=== PATIENT | male | born 1935 | race Caucasian/White ===

== ENCOUNTER 2016-09-16 13:51 | Emergency (ER) | payer MEDICARE, BC ==
[~2016-09-16] VITALS: Wt 77.1 kg
[~2016-09-16 13:51] MED LIST: ADVAIR 250/501 EA INH; ASPIRIN81 M1 PO; ASTELIN NASAL S30 ML INH; FISH OIL 10001000 MG PO; FLONASE 0.05% 121 EA; HYTRIN10 MG PO; K-PHOS500 MG PO; LIPITOR40 MG PO; LISINOPRIL5 MG PO; MUCINEX600 MG PO; MULTIPLE VITAMI1 TAB PO; PHAZYME ULTRA180 MG PO; TERAZOSIN HYDRO10 MG PO; VIAGRA50 MG PO; VITAMIN D2000 IU PO; WELLBUTRIN SR150 MG PO; WELLBUTRIN XL300 MG PO; [UNRECOGNIZED DRUG - OTHER]
[2016-09-16 15:37] LABS: BILIRUBIN NEGATIVE (NEGATIVE); BLOOD 3+ (NEGATIVE); CLARITY SL CLOUDY (CLEAR); COLOR YELLOW (YELLOW); GLUCOSE NEGATIVE (NEGATIVE); KETONE NEGATIVE (NEGATIVE); LEUKO ESTERASE 1+ (NEGATIVE); NITRITE NEGATIVE (NEGATIVE); PROTEIN 1+ (NEGATIVE); UROBILINOGEN 0.2 E.U./dl (0.2-1.0)
[2016-09-16 15:51] LABS: BACTERIA 1+; EPITHELIAL CELLS 0-2; RBC TNTC rbc/hpf (0-2); URINE REFLEX COMMENT YES (NO)
[2016-09-16] MEDS ORDERED: CIPRO500 MG PO (16:02)
== END 2016-09-16 16:20 | disposition home or self-care (01) ==
LOC: ED 13:51
PROVIDERS: Physician Assistant
DX: R33.8 Other retention of urine (principal); Z79.82 Long term (current) use of aspirin; Z79.899 Other long term (current) drug therapy

== ENCOUNTER → 2016-09-21 | Day surgery (SDC) | payer MEDICARE, BC ==
[~2016-09-21] MED LIST changes: +CIPRO500 MG PO
== END | disposition home or self-care (01) ==
LOC: SDC 09-20 13:15
DX: R33.8 Other retention of urine (principal)

== ENCOUNTER → 2016-11-09 | Outpatient (CLI) | payer MEDICARE, BC | END | disposition home or self-care (01) | LOC: NM 02:49 | DX: K82.9 Disease of gallbladder, unspecified (principal) ==

== ENCOUNTER → 2017-01-10 | Outpatient (CLI) | payer MEDICARE, BC | END | disposition home or self-care (01) | LOC: CARD 12:57 | DX: R53.83 Other fatigue (principal); R06.00 Dyspnea, unspecified ==

== ENCOUNTER → 2017-03-15 | Outpatient (CLI) | payer MEDICARE, BC ==
[2017-03-15 12:33] LABS: BASO # 0.1 10*3/uL (0.0-0.1); BASO % 0.3 % (0.0-1.0); EOS # 0.6 10*3/uL (0.0-0.4); EOS % 3.1 % (1.0-4.0); HEMATOCRIT 43.1 % (42.0-52.0); HEMOGLOBIN 14.2 g/dl (14.0-18.0); LYMPH # 2.5 10*3/uL (1.3-4.4); LYMPH % 13.7 % (27.0-41.0); MEAN CELL VOLUME 94.7 fl (80.0-94.0); MEAN CORPUSCULAR HGB 31.2 pg (27.0-31.0); MEAN CORPUSCULAR HGB CONC 32.9 g/dl (33.0-37.0); MEAN PLATELET VOLUME 10.6 fl (9.6-12.3); MONO # 0.9 10*3/uL (0.1-1.0); NEUT # 14.3 10*3/uL (2.3-7.9); NEUT % 77.2 % (47.0-73.0); PLATELET COUNT AUTOMATED 373 10*3/uL (130-400); RED BLOOD COUNT 4.55 10*6/uL (4.50-5.90); RED CELL DISTRI WIDTH 13.2 % (0-14.5); WHITE BLOOD COUNT 18.4 10*3/uL (4.8-10.8)
[2017-03-15 12:57] LABS: ALBUMIN 3.3 gm/dl (3.1-4.5); ALKALINE PHOSPHATASE 76 U/L (45-117); BUN 19 mg/dl (7-24); CHLORIDE 107 mmol/L (98-107); CHOLESTEROL 117 mg/dL (<200); CREATININE 1.01 mg/dL (0.70-1.30); HDL CHOLESTEROL 43 mg/dl (40-60); LDL CHOLESTEROL 49 mg/dL (9-159); POTASSIUM 4.4 mmol/L (3.5-5.1); SGOT/AST 12 IU/L (3-35); SGPT/ALT 21 U/L (12-78); SODIUM 139 mmol/L (136-145); TOTAL PROTEIN 7.1 gm/dL (6.4-8.2); TRIGLYCERIDES 127 mg/dl (<150); VLDL CHOLESTEROL 25 mg/dL (6-40)
[2017-03-15 13:04] LABS: THYROID STIM HORMONE (HS) 0.755 uIU/ml (0.358-4.75)
== END | disposition home or self-care (01) ==
LOC: LAB 02:02
PROVIDERS: Internal Medicine
DX: Z12.5 Encounter for screening for malignant neoplasm of prostate (principal); I10 Essential (primary) hypertension; E78.2 Mixed hyperlipidemia; N40.0 Benign prostatic hyperplasia without lower urinary tract symptoms

== ENCOUNTER → 2017-03-20 | Outpatient (CLI) | payer MEDICARE, BC ==
[2017-03-20 14:19] LABS: BASO # 0.1 10*3/uL (0.0-0.1); BASO % 0.3 % (0.0-1.0); EOS # 0.4 10*3/uL (0.0-0.4); EOS % 2.6 % (1.0-4.0); HEMATOCRIT 42.1 % (42.0-52.0); HEMOGLOBIN 13.9 g/dl (14.0-18.0); LYMPH # 2.3 10*3/uL (1.3-4.4); LYMPH % 15.6 % (27.0-41.0); MEAN PLATELET VOLUME 10.1 fl (9.6-12.3); MONO # 0.9 10*3/uL (0.1-1.0); NEUT # 11.1 10*3/uL (2.3-7.9); PLATELET COUNT AUTOMATED 388 10*3/uL (130-400); RED BLOOD COUNT 4.48 10*6/uL (4.50-5.90); RED CELL DISTRI WIDTH 13.2 % (0-14.5); WHITE BLOOD COUNT 14.8 10*3/uL (4.8-10.8)
== END | disposition home or self-care (01) ==
LOC: LAB 14:03
PROVIDERS: Internal Medicine
DX: I10 Essential (primary) hypertension (principal)

== ENCOUNTER 2017-08-19 19:55 | Inpatient (IN) | payer MEDICARE, BC ==
[~2017-08-19] VITALS: Ht 177.8 cm; Wt 76.8 kg
--- NOTE | ~2017-08-19 | PR ---
[place], [place] PROGRESS NOTE [id number] UNIT #: [id number] ROOM: [place] [address] DOCTOR: TYRONE ERAZO MD BIRTHDATE: [birth year] DOS: 08/21/2017 CARDIOLOGY PROGRESS NOTE SUBJECTIVE: The patient was seen at his bedside in the intensive care unit today, 08/21/2017. No family is in attendance. He is a 81-year-old man with risk factors for coronary disease including hypertension, hyperlipidemia and peripheral arterial disease, who also has a remote history of colon resection for "suspicious polyps." He comes into the Emergency Room now with generalized weakness and fatigue. Blood cultures are positive for gram-negative bacilli. The patient is noted to have a large gallbladder stone. He did have CT scanning of his head, chest and abdomen. The CT scan of the chest does show a spiculated upper lobe lesion, suggestive of metastatic disease. There are suspicious lesions in his liver and adrenal gland as well. In addition, he does have a high fever, which was recorded as high as 106.3 and he does have an elevated white cell count, which was recorded as high as 46,600. From a cardiac perspective, he denies chest pain. His electrocardiogram shows nonspecific changes; however, troponin levels have been elevated. On admission, his troponin was 7.26. The subsequent troponin level was 17.3, followed by 13.9 and then 8.91. Currently, the patient states he just feels tired and sore all over. He denies any specific chest pain or palpitations and denies any trouble breathing. PHYSICAL EXAMINATION: VITAL SIGNS: Today his pulse is 83 and regular, blood pressure is 111/36. He is on Levophed. His current temperature is 100.1. He weighs 76.8 kg and has a body mass index 24.3. HEENT: Normocephalic and atraumatic. Extraocular muscles are intact. Sclerae are muddy, but I do not see any scleral hemorrhages. Oral mucosa is moist. Tongue is midline. NECK: Supple. He has no jugular distention. Carotids are full. LUNGS: Respirations are unlabored. He has decreased breath sounds at the bases, but no wheezes or rales. HEART: Has a regular rhythm. He has an S4 gallop. I did not hear an S3. He has grade 1/6 systolic ejection murmur along the left sternal border. There is no diastolic murmur. ABDOMEN: Soft and normally active. EXTREMITIES: Showed no edema. IMPRESSION: 1. Admission with malaise. The patient found to have high fever, high white count and blood cultures positive for gram-negative rods. He does have a large stone in his gallbladder, which may be the source. 2. History of colon resection for "suspicious polyps" in the distant past. 3. CT scan suspicious for pulmonary, liver and adrenal metastases. 4. Gram-negative sepsis. 5. Elevation in troponin, consistent with acute myocardial injury. Significance of this finding is not yet apparent. The elevation is more than [place], [place] PROGRESS NOTE NAME: FRANCA TAVERA UNIT #: [id number] ROOM: [place] [address] DOCTOR: TYRONE ERAZO MD BIRTHDATE: [birth year] one would expect for stress myocardial ischemia or demand ischemia. PLAN: For now, we are treating him empirically. We will obtain an echocardiogram to evaluate regional and global left ventricular function. Further recommendations will depend upon the results of his echo as well as his general medical evaluation. Whether or not we proceed with advanced cardiac diagnostic studies will depend upon his general prognosis. I thank the hospitalist physicians for asking our advice regarding his care. TYRONE ERAZO MD CM:PNTRANS [id number] TYRONE ERAZO MD 08/21/17 1015 interface
--- NOTE | ~2017-08-19 | CON ---
[place], [place] REPORT OF CONSULTATION NAME: FRANCA TAVERA UNIT #: [id number] ROOM: [place] [address] DOCTOR: LULA MCQUEEN,SEPTEMBER BIRTHDATE: [birth year] DOS: 08/20/2017 HISTORY OF PRESENT ILLNESS: The patient is a 81-year-old male who was admitted with fever last night, sepsis. He spiked a temperature this morning of 106.3, was transferred to ICU. He was ordered Merrem at 10:00 a.m. today. He last night received Rocephin and Zithromax on admission. His white count was 25,000 last night, this morning was up to 43,000, this afternoon to 46,000. He had a CT of the abdomen, chest and pelvis that demonstrated no acute infiltrates; however, he has a couple of liver lesions concerning for metastatic disease as well as a left adrenal mass concerning for malignancy. No abscesses. His admitting blood cultures now have gram-negative rods. He had elevated troponin. He remains on Levophed. The patient is alert. He states he has been sick since yesterday morning. He has had no nausea or vomiting. He has had fevers, chills. He has chronic neck pain. Denies abdominal pain until he states just started now. He also had weakness, diaphoresis, achiness at the time of admission. His CT also noted a 2 cm stone. He states he has had a 2 cm gallstone. He states he has had for a long time. Lactic acid was 4 last night, it is 2.9, right now. Denies any other symptoms. He has Mina catheter in currently. PAST MEDICAL HISTORY: As above. He has been taking Tylenol reportedly 1000 mg 3 times a day for arthritic pain. 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 He states they did not find cancer at that point in time, it was approximately 15 years ago. He is status post TURP. SOCIAL HISTORY: Reformed smoker, quit in 2013, 1 pack of cigarettes per day for many years. Occasional alcohol use. No illicit drug use. FAMILY MEDICAL HISTORY: Mother from CVA at the age of 59. Father from an MVA. ALLERGIES: No known drug allergies. LABORATORY DATA: WBC is 46.6, platelets 270. Most recent BMP is pending. Lactic acid 2.9, which had actually gone up from earlier when it was 2.5. UA negative for pyuria. CK 49.51, CK-MB 6.1, myoglobin 3452. Lactic acid peaked at 5.5 at 9:30 this morning. Troponin elevated as well. BUN 17, creatinine 1.27. CURRENT MEDICATIONS: Lovenox, norepinephrine, Lopressor, Merrem, vancomycin, Tamiflu, Restoril, [place]. REVIEW OF SYSTEMS: As above in history of present illness. No cough or shortness of breath. No rash or itch. Again, he has been having fevers, sweats, chills. Denies abdominal pain Previously, until just now. No peripheral edema. No rashes. No recent change in vision, hearing, weight. He has not eaten in over 24 hours. Further review of systems is unremarkable. PHYSICAL EXAMINATION: [place], [place] REPORT OF CONSULTATION NAME: FRANCA TAVERA UNIT #: [id number] ROOM: [place] [address] DOCTOR: LULA MCQUEEN,SEPTEMBER BIRTHDATE: [birth year] VITAL SIGNS: Temperature 99.2 rectal, pulse 88, respirations 28, BP 95/57: GENERAL: A 81-year-old male, somewhat toxic in appearance. HEAD, EYES, EARS, NOSE AND THROAT: Normocephalic. No thrush. One very small black spot noted on distal tongue, otherwise oropharynx is unremarkable. NECK: Supple. LUNGS: Clear to auscultation bilaterally. Respirations even and unlabored. HEART: Regular rhythm. No murmur appreciated. Tachy. ABDOMEN: Soft. Liver enlarged, tender, palpable. Hypoactive bowel sounds. EXTREMITIES: No edema, deformity or mottling of the feet. Mina catheter draining clear yellow urine, small amount, just recently emptied. SKIN: Warm, diaphoretic, pale. ASSESSMENT AND PLAN: Gram-negative rhonda septicemia, multiple liver lesions concerning for malignancy, large gallstone which the patient states he has had for some time. He does not have signs of obstruction, but that is certainly possible. We have no surgical support here at [facility] right now. I did discuss the case with Dr. Morris. Consideration may need to be moving him to a tertiary care center, especially given his now worsening again lactic acid and as well as worsening of his BP. We will dose gentamicin 5 mg/kg IV x 1, continue the Merrem. He is going to need further workup for the liver lesions. This may be the source of his septicemia or possibly issues with the gallstone. LA COTTON CNP NILES SANCHEZ MD CM:CONSTR:REPORT OF CONSULTATION 1548 08/20/17 1757 interface
--- NOTE | ~2017-08-19 | CON ---
[place], [place] REPORT OF CONSULTATION NAME: FRANCA TAVERA UNIT #: [id number] ROOM: [place] [address] DOCTOR: LAURA QUINTERO,NILES Clark BIRTHDATE: [birth year] DOS: 08/20/2017 ADDENDUM After reviewing the chart and labs, I agree with the above plans as described. We will follow the patient up clinically, adjust accordingly. Thank you for allowing me to see the patient and participate in his care. NILES SANCHEZ MD CM:CONSTR:REPORT OF CONSULTATION 2106 08/21/17 0744 interface
--- NOTE | ~2017-08-19 | CON ---
[place], [place] REPORT OF CONSULTATION NAME: FRANCA TAVERA UNIT #: [id number] ROOM: [place] [address] DOCTOR: WOLF QUINTERO,AYUSH BIRTHDATE: [birth year] DOS: 08/20/2017 REASON FOR CONSULTATION: Elevated troponin. HISTORY OF PRESENT ILLNESS: This is a 81-year-old patient with history of hypertension, dyslipidemia, peripheral vascular disease, who presents to the Emergency Room for fever. For the past couple of days, he is running fever with chills, generalized weakness and some diaphoresis and body aches. He denies any nausea, vomiting, chest pains. His laboratory testing showed elevated cardiac troponin, hence Cardiology was consulted. Most of the history was obtained from the chart since the patient was somewhat lethargic from a high fever and there is no family at bedside. He denies any chest pain or shortness of breath. No palpitations or syncope. REVIEW OF SYSTEMS: Review of the 10 systems negative except as mentioned above. PAST MEDICAL HISTORY: 1. Hypertension. 2. Peripheral vascular disease. 3. Dyslipidemia. 4. History of colon cancer. PAST SURGICAL HISTORY: History of colon cancer, colon resection. history of TURP. SOCIAL HISTORY: The patient does drink occasionally; former smoker, quit in 2013. Does not use illicit drugs. FAMILY HISTORY: Father at age of 72 from motor vehicle accident. Mother at the age of 59 from stroke. ALLERGIES: No known drug allergies. HOME MEDICATIONS: Reviewed. PHYSICAL EXAMINATION: VITAL SIGNS: Blood pressure 131/60, pulse 110, respiration is 18. GENERAL: The patient is slightly lethargic, no acute distress. HEENT: Pupils round, equal. No jaundice. NECK: Supple, no distended neck veins, no carotid bruit. Tongue was moist. CHEST: Symmetrical, nontender. LUNGS: Few scattered rhonchi, but good air entry bilaterally. HEART: Regular rhythm. The patient is tachycardic. Grade 1/6 systolic murmur. ABDOMEN: Benign, nontender. Bowel sounds normal. EXTREMITIES: Showed no edema. Distal pulses are palpable. SKIN: Warm and dry. No cyanosis. GENITOURINARY: Deferred. NEUROLOGIC: The patient is alert and oriented to place and person. REVIEW OF THE DIAGNOSTIC TESTS: EKG, labs, and imaging studies reviewed. EKG [place], [place] REPORT OF CONSULTATION NAME: FRANCA TAVERA UNIT #: [id number] ROOM: [place] [address] DOCTOR: WOLF QUINTERO,AYUSH BIRTHDATE: [birth year] showed sinus rhythm with lateral ST-T changes, poor R wave progression. His CBC, chemistry and electrolytes were reviewed. His cardiac troponin was elevated. His creatinine is 1.27, potassium 3.9. TSH 0.86. White cell count of 43,000, hemoglobin 12, platelet count 327. IMPRESSION: 1. Elevated troponin. The patient denies any chest pain, possible NSTEMI versus rhabdomyolysis. We will check his total CPK and MB and also cycle his cardiac enzymes. The patient specifically denied any chest pain or shortness of breath. 2. Sepsis. 3. Sinus tachycardia due to sepsis and febrile illness. 4. History of hypertension. 5. Dyslipidemia. 6. Chronic kidney disease. RECOMMENDATIONS: 1. The patient was on aspirin and low-dose beta blockers. Continue those two. 2. Continue heart rate and blood pressures. 3. We will check 2D echo for LV function and also to rule out any endocarditis. 4. Further recommendation based on his hospital course, his labs and also his echo findings. 5. There is no family at bedside at the time of my examination. AYUSH BLOOM MD CM:CONSTR:REPORT OF CONSULTATION 0030 08/21/17 0938 interface
--- NOTE | ~2017-08-19 | PROC NOTE ---
[place], [place] PROCEDURE NOTE NAME: FRANCA TAVERA UNIT #: [id number] ROOM: [place] [address] DOCTOR: NIK SAMSON DO BIRTHDATE: [birth year] DOS: 08/21/2017 PROCEDURE: Endotracheal intubation. PROCEDURE IN DETAIL: This is a 81-year-old male currently admitted on the hospitalist service, being treated for sepsis. He developed worsening respiratory distress, requiring intubation. Rapid sequence intubation was performed using succinylcholine and etomidate. A size 7.5 endotracheal tube was inserted into the trachea with direct visualization of the vocal cords. There was good color change on the CO2 detector. Breath sounds equal bilaterally. A chest x-ray was ordered for tube placement. There were no complications during the procedure. NIK SAMSON DO CM:PROCNOTE:PROCEDURE NOTE 1225 [id number] NIK SAMSON DO
[~2017-08-19 19:55] MED LIST changes: +FISH OIL 1,0001 EAC5 PO; -FISH OIL 10001000 MG PO; -LISINOPRIL5 MG PO; +ZESTRIL10 MG PO
[2017-08-19 20:01] VITALS: BP 150/56
[2017-08-19 20:53] LABS: HEMATOCRIT 39.1 % (42.0-52.0); MEAN CELL VOLUME 93.5 fl (80.0-94.0); MEAN CORPUSCULAR HGB 31.1 pg (27.0-31.0); MEAN CORPUSCULAR HGB CONC 33.2 g/dl (33.0-37.0); MEAN PLATELET VOLUME 10.4 fl (9.6-12.3); PLATELET COUNT AUTOMATED 377 10*3/uL (130-400); RED BLOOD COUNT 4.18 10*6/uL (4.50-5.90); WHITE BLOOD COUNT 25.5 10*3/uL (4.8-10.8)
[2017-08-19 21:08] LABS: ALKALINE PHOSPHATASE 102 U/L (45-117); BUN 18 mg/dl (7-24); CHLORIDE 100 mmol/L (98-107); CREATININE 1.33 mg/dL (0.70-1.30); SGOT/AST 33 IU/L (3-35); SGPT/ALT 41 U/L (12-78); SODIUM 133 mmol/L (136-145); TOTAL PROTEIN 7.2 gm/dL (6.4-8.2)
[2017-08-19 21:10] VITALS: BP 142/62
[2017-08-19 21:10] LABS: BILIRUBIN NEGATIVE (NEGATIVE); BLOOD 2+ (NEGATIVE); CLARITY CLEAR (CLEAR); COLOR YELLOW (YELLOW); GLUCOSE NEGATIVE (NEGATIVE); KETONE TRACE (NEGATIVE); LEUKO ESTERASE NEGATIVE (NEGATIVE); NITRITE NEGATIVE (NEGATIVE); SPECIFIC GRAVITY 1.025 (1.005-1.030); UROBILINOGEN 0.2 E.U./dl (0.2-1.0)
[2017-08-19 21:12] LABS: TOTAL CELLS COUNTED 100 #CELLS
[2017-08-19 21:13] LABS: BURR CELLS MODERATE
[2017-08-19 21:15] LABS: PLATELET SUFFICIENCY NORMAL (NORMAL)
[2017-08-19 21:16] LABS: BACTERIA TRACE; RBC 0-2 rbc/hpf (0-2); WBC 0-2 wbc/hpf (0-5)
[2017-08-19 22:51] VITALS: BP 148/59
[2017-08-19] MEDS ORDERED: MELOXICAM15 MG PO (23:02)
[2017-08-19 23:30] VITALS: BP 157/52
[2017-08-20] VITALS (36 sets, daily range): BP systolic 88–166; BP diastolic 41–69
[2017-08-20 07:20] LABS: HEMATOCRIT 36.5 % (42.0-52.0); MEAN CELL VOLUME 95.8 fl (80.0-94.0); MEAN CORPUSCULAR HGB 31.5 pg (27.0-31.0); MEAN CORPUSCULAR HGB CONC 32.9 g/dl (33.0-37.0); MEAN PLATELET VOLUME 10.3 fl (9.6-12.3); PLATELET COUNT AUTOMATED 327 10*3/uL (130-400); RED BLOOD COUNT 3.81 10*6/uL (4.50-5.90); RED CELL DISTRI WIDTH 13.1 % (0-14.5)
[2017-08-20 07:37] LABS: BUN 17 mg/dl (7-24); CHLORIDE 103 mmol/L (98-107); CREATININE 1.27 mg/dL (0.70-1.30); PHOSPHOROUS 3.1 mg/dL (2.5-4.9); POTASSIUM 3.9 mmol/L (3.5-5.1); SODIUM 134 mmol/L (136-145)
[2017-08-20 07:39] LABS: BURR CELLS MODERATE; PLATELET SUFFICIENCY NORMAL (NORMAL); TOTAL CELLS COUNTED 100 #CELLS
[2017-08-20 07:41] LABS: WHITE BLOOD COUNT 43.2 10*3/uL (4.8-10.8)
[2017-08-20 07:46] LABS: THYROID STIM HORMONE (HS) 0.861 uIU/ml (0.358-4.75)
[2017-08-20 08:00] LABS: ACT PARTIAL THROMBO TIME 27.1 SECONDS (20.8-31.5); INTERNATIONAL NORM RATIO 1.1 (2.0-3.5)
[2017-08-20] MEDS ORDERED: GUAIFENESIN600 MG PO (08:02)
[2017-08-20] MEDS ORDERED: MULTIVITAMINS1 EAC1 PO (08:08)
[2017-08-20] MEDS ORDERED: PHAZYME180 MG PO (08:09)
[2017-08-20 08:46] LABS: VITAMIN D, 25-HYDROXY 23.4 ng/mL (30-100)
[2017-08-20 10:10] LABS: ABG HCO3 15.5 mmol/l (22-26); ABG O2 SATURATION 98.5 % (95-97); ARTERIAL BLOOD GAS PCO2 29.6 mmHg (35-45); ARTERIAL BLOOD GAS PH 7.359 (7.35-7.45)
[2017-08-20 10:12] LABS: ABG BASE EXCESS -7.2 mmol/L (-2.0-2.0)
[2017-08-20 11:27] LABS: BILIRUBIN NEGATIVE (NEGATIVE); BLOOD 3+ (NEGATIVE); CLARITY CLOUDY (CLEAR); COLOR YELLOW (YELLOW); GLUCOSE NEGATIVE (NEGATIVE); KETONE NEGATIVE (NEGATIVE); LEUKO ESTERASE NEGATIVE (NEGATIVE); NITRITE NEGATIVE (NEGATIVE); SPECIFIC GRAVITY 1.025 (1.005-1.030); UROBILINOGEN 0.2 E.U./dl (0.2-1.0)
[2017-08-20 11:51] LABS: BACTERIA TRACE
[2017-08-20 11:57] LABS: CKMB 6.1 ng/ml (0.5-3.6)
[2017-08-20 15:01] LABS: ABG O2 SATURATION 95.5 % (95-97); ARTERIAL BLOOD GAS PCO2 25.7 mmHg (35-45); ARTERIAL BLOOD GAS PH 7.388 (7.35-7.45)
[2017-08-20 15:10] LABS: HEMOGLOBIN 12.4 g/dl (14.0-18.0); MEAN CELL VOLUME 93.9 fl (80.0-94.0); MEAN CORPUSCULAR HGB 31.5 pg (27.0-31.0); MEAN CORPUSCULAR HGB CONC 33.5 g/dl (33.0-37.0); MEAN PLATELET VOLUME 10.3 fl (9.6-12.3); PLATELET COUNT AUTOMATED 270 10*3/uL (130-400); RED BLOOD COUNT 3.94 10*6/uL (4.50-5.90); RED CELL DISTRI WIDTH 13.2 % (0-14.5)
[2017-08-20 15:25] LABS: WHITE BLOOD COUNT 46.6 10*3/uL (4.8-10.8)
[2017-08-20 15:30] LABS: PLATELET SUFFICIENCY NORMAL (NORMAL); TOTAL CELLS COUNTED 100 #CELLS
[2017-08-20 15:31] LABS: BURR CELLS MODERATE; POLYCHROMASIA SLIGHT
[2017-08-20 15:36] LABS: ALBUMIN 2.3 gm/dl (3.1-4.5); ALKALINE PHOSPHATASE 107 U/L (45-117); BUN 20 mg/dl (7-24); CHLORIDE 107 mmol/L (98-107); CREATININE 1.18 mg/dL (0.70-1.30); POTASSIUM 3.8 mmol/L (3.5-5.1); SGOT/AST 195 IU/L (3-35); SGPT/ALT 127 U/L (12-78); SODIUM 136 mmol/L (136-145); TOTAL PROTEIN 5.7 gm/dL (6.4-8.2)
[2017-08-21] VITALS (49 sets, daily range): BP systolic 47–179; BP diastolic 14–83
[2017-08-21 06:53] LABS: HEMATOCRIT 34.6 % (42.0-52.0); HEMOGLOBIN 11.6 g/dl (14.0-18.0); MEAN CELL VOLUME 93.5 fl (80.0-94.0); MEAN CORPUSCULAR HGB 31.4 pg (27.0-31.0); MEAN CORPUSCULAR HGB CONC 33.5 g/dl (33.0-37.0); MEAN PLATELET VOLUME 10.6 fl (9.6-12.3); PLATELET COUNT AUTOMATED 262 10*3/uL (130-400); RED CELL DISTRI WIDTH 13.2 % (0-14.5); WHITE BLOOD COUNT 35.4 10*3/uL (4.8-10.8)
[2017-08-21 07:10] LABS: ALBUMIN 2.2 gm/dl (3.1-4.5); ALKALINE PHOSPHATASE 105 U/L (45-117); BUN 26 mg/dl (7-24); CHLORIDE 106 mmol/L (98-107); CREATININE 1.25 mg/dL (0.70-1.30); POTASSIUM 4.1 mmol/L (3.5-5.1); SGOT/AST 217 IU/L (3-35); SGPT/ALT 183 U/L (12-78); SODIUM 138 mmol/L (136-145); TOTAL PROTEIN 5.8 gm/dL (6.4-8.2)
[2017-08-21 07:13] LABS: BURR CELLS MODERATE; PLATELET SUFFICIENCY NORMAL (NORMAL); TOTAL CELLS COUNTED 100 #CELLS
[2017-08-21 07:34] LABS: CPK 4949 U/L (39-308)
[2017-08-21 11:46] LABS: ABG HCO3 14.4 mmol/l (22-26); ABG O2 SATURATION 82.2 % (95-97); ARTERIAL BLOOD GAS PCO2 33.9 mmHg (35-45); ARTERIAL BLOOD GAS PH 7.26 (7.35-7.45); ARTERIAL BLOOD GAS PO2 59.1 mmHg (80-90)
[2017-08-21 14:42] LABS: ABG HCO3 16.9 mmol/l (22-26); ABG O2 SATURATION 76.5 % (95-97); ARTERIAL BLOOD GAS PO2 68.9 mmHg (80-90)
[2017-08-21 14:51] LABS: ABG BASE EXCESS -15.6 mmol/L (-2.0-2.0); ARTERIAL BLOOD GAS PCO2 80.8 mmHg (35-45); ARTERIAL BLOOD GAS PH 6.969 (7.35-7.45)
== END 2017-08-21 16:31 | disposition expired | DRG 871 ==
LOC: ED 19:55 → EDHOLD 22:13 → 5E 22:25 → ICCU 08-20 09:50
PROVIDERS: Emergency Medicine; Internal Medicine; Internal Medicine Critical Care Medicine; Student in an Organized Health Care Education/Training Program
PROC: 0BH17EZ Insertion of Endotracheal Airway into Trachea, Via Natural or Artificial Opening (ICD-10-PCS; principal; 2017-08-21)
DX: A41.50 Gram-negative sepsis, unspecified (principal); R65.21 Severe sepsis with septic shock; I21.4 Non-ST elevation (NSTEMI) myocardial infarction; J96.01 Acute respiratory failure with hypoxia; N17.0 Acute kidney failure with tubular necrosis; G93.41 Metabolic encephalopathy; K80.21 Calculus of gallbladder without cholecystitis with obstruction; E44.0 Moderate protein-calorie malnutrition; E87.4 Mixed disorder of acid-base balance; E87.1 Hypo-osmolality and hyponatremia; E86.0 Dehydration; Z66 Do not resuscitate; Z51.5 Encounter for palliative care; E78.5 Hyperlipidemia, unspecified; I73.9 Peripheral vascular disease, unspecified; N18.9 Chronic kidney disease, unspecified; I12.9 Hypertensive chronic kidney disease with stage 1 through stage 4 chronic kidney disease, or unspecified chronic kidney disease; D64.9 Anemia, unspecified; J43.9 Emphysema, unspecified; R74.0 Nonspecific elevation of levels of transaminase and lactic acid dehydrogenase [LDH]; E27.9 Disorder of adrenal gland, unspecified; E16.0 Drug-induced hypoglycemia without coma; R91.1 Solitary pulmonary nodule; Z87.891 Personal history of nicotine dependence; Z79.51 Long term (current) use of inhaled steroids; Z79.82 Long term (current) use of aspirin; Z79.899 Other long term (current) drug therapy; Z90.49 Acquired absence of other specified parts of digestive tract; Z90.79 Acquired absence of other genital organ(s); Z82.49 Family history of ischemic heart disease and other diseases of the circulatory system; Z82.3 Family history of stroke; Z68.24 Body mass index [BMI] 24.0-24.9, adult